=== PATIENT | female | born 1995 | race African-American/Black ===

== ENCOUNTER 2018-01-07 19:26 | Emergency (ER) | payer OTHER ==
[~2018-01-07] VITALS: Ht 170.2 cm; Wt 104.3 kg
[2018-01-07 19:31] VITALS: BP 128/75
== END 2018-01-07 20:20 | disposition home or self-care (01) ==
LOC: ER 19:26
DX: S40.862A Insect bite (nonvenomous) of left upper arm, initial encounter (principal); S70.262A Insect bite (nonvenomous), left hip, initial encounter; S30.861A Insect bite (nonvenomous) of abdominal wall, initial encounter; F17.200 Nicotine dependence, unspecified, uncomplicated; W57.XXXA Bitten or stung by nonvenomous insect and other nonvenomous arthropods, initial encounter; Y93.89 Activity, other specified; Y92.89 Other specified places as the place of occurrence of the external cause; Y99.8 Other external cause status